=== PATIENT | female | born 2000 | race Caucasian/White ===

== ENCOUNTER 2024-09-13 22:38 | Emergency (ER) | payer SELFPAY | END 2024-09-13 23:26 | disposition home or self-care (01) | LOC: CSHERS 22:38 | DX: S01.21XA Laceration without foreign body of nose, initial encounter (principal); I10 Essential (primary) hypertension; V43.52XA Car driver injured in collision with other type car in traffic accident, initial encounter; Y93.89 Activity, other specified | CPT/HCPCS: 99283 ==